=== PATIENT | female | born 1955 | race Two or more races ===

== ENCOUNTER 2021-03-19 12:30 | Inpatient (IN) | payer OTHER ==
[~2021-03-19] VITALS: Ht 154.9 cm; Wt 88.9 kg
[2021-05-20] MEDS ORDERED: LEVO-T25 MCG PO (08:28)
[2021-05-20] MEDS ORDERED: ANASTROZOLE1 MG PO (08:29)
[2021-05-20] MEDS ORDERED: HYDROCHLOROTHIA25 MG PO (08:29)
[2021-05-20] MEDS ORDERED: ACID REDUCER20 M1 PO (08:30)
[2021-05-20] MEDS ORDERED: COZAAR50 MG PO (08:30)
[2021-05-20] MEDS ORDERED: PREGABALIN75 MG PO (08:30)
[2021-05-20] MEDS ORDERED: TOPROL XL50 M1 PO (08:30)
[2021-05-22] MEDS ORDERED: SIMVASTATIN20 MG (16:11)
[2021-05-22] MEDS ORDERED: METOPROLOL TART50 MG (16:11)
== END 2021-05-24 14:57 | disposition home or self-care (01) | DRG 741 ==
LOC: SURH 05-22 07:00 → O/R 05-22 08:35 → OB/GYN 05-22 08:35 → SURH 05-22 12:00 → OB/GYN 05-22 21:07
PROVIDERS: ADMIT Specialist; ATTEND Specialist
PROC: 0UT20ZZ Resection of Bilateral Ovaries, Open Approach (ICD-10-PCS; 2021-05-22)
PROC: 0UT70ZZ Resection of Bilateral Fallopian Tubes, Open Approach (ICD-10-PCS; 2021-05-22)
PROC: 07BC0ZZ Excision of Pelvis Lymphatic, Open Approach (ICD-10-PCS; 2021-05-22)
PROC: 0UT90ZZ Resection of Uterus, Open Approach (ICD-10-PCS; principal; 2021-05-22 07:00)
DX: C54.1 Malignant neoplasm of endometrium (principal); N80.0 Endometriosis of uterus; D25.1 Intramural leiomyoma of uterus; D25.2 Subserosal leiomyoma of uterus; N83.291 Other ovarian cyst, right side; N83.202 Unspecified ovarian cyst, left side